=== PATIENT | male | born 1995 | race Caucasian/White ===

== ENCOUNTER 2023-09-04 01:22 | Emergency (ER) | payer SELFPAY ==
[2023-09-04 01:36] VITALS: TEMP 98.1
[2023-09-04 01:55] LABS: Absolute Neutrophil Ct (ANC) 3.47 x10^3/uL (1.4-6.9); BASOPHIL % 0.5 % (0.0-0.4); Basophil (Absolute #) 0.04 x10^3/uL (0-0.4); Eosinophil % 2.9 % (0.00-5.0); Eosinophil (Absolute #) 0.23 x10^3/uL (0-0.5); Hematocrit 45.5 % (42-50); Hemoglobin 15.4 g/dL (12.5-18.0); IMMATURE GRAN # 0.02 x10^3u/L (0.00-0.03); IMMATURE GRAN % 0.3 % (0.00-0.4); Lymphocyte (Absolute #) 3.48 x10^3/uL (1.0-4.6); Lymphocytes % 44.1 % (24.0-44.0); Mean Cell Volume 84.4 fL (78-100); Mean Corpuscular Hemoglobin 28.6 pg (26-32); Mean Corpuscular Hgb Concent. 33.8 g/dL (32-36); Mean Platelet Volume 8.9 fL (7.5-11.0); Monocyte (Absolute #) 0.65 x10^3/uL (0.0-1.3); Monocytes % 8.2 % (0.0-12.0); Platelet Count 274 x10^3/uL (150-450); Red Blood Count 5.39 x10^6/uL (4.1-5.6); Red Cell Distribution Width 11.9 % (11.5-14.0); White Blood Count 7.9 x10^3/uL (4.0-10.5)
[2023-09-04 02:02] LABS: Appearance Clear (Clear); Bacteria None Seen /HPF (None Seen); Bilirubin Negative (Negative); Blood Negative (Negative); Epithelial Cells None Seen /HPF (None Seen); Glucose, Urine Negative (Negative); Hyaline Casts NONE SEEN /LPF (0-2); Ketones Negative (Negative); Leukocyte Esterase Trace (Negative); Nitrite Negative (Negative); Ph 5.5 (4.6-8.0); Protein,Urine Dip Negative (Negative); RBC 0-2 /HPF (0-5); Specific Gravity 1.025 (1.005-1.030)
[2023-09-04 02:04] LABS: ADD URINE CULTURE? YES (NO)
[2023-09-04 02:10] LABS: ALBUMIN 4.2 g/dL (3.5-5.0); ALKALINE PHOSPHATASE 66 U/L (38-126); ANION GAP 13.2 MEQ/L (5-15); BLOOD UREA NITROGEN 19 mg/dL (9-20); CHLORIDE 104 mmol/L (98-107); Calcium 9.5 mg/dL (8.4-10.2); Carbon Dioxide 25 mmol/L (22-30); Creatinine 1 1.06 mg/dL (0.66-1.25); EST GLOMERULAR FILTRATION RATE 96.8 ML/MIN; ETHYL ALCOHOL < 10 mg/dL (0-10); Glucose 128 mg/dL (74-106); Potassium 4.1 mmol/L (3.5-5.1); SGOT/AST 37 U/L (17-59); SGPT/ALT 48 U/L (0-50); SODIUM 138 mmol/L (135-145)
[2023-09-04 02:13] LABS: Amphetamine,Urine NEGATIVE (NEGATIVE); Barbiturate,Urine NEGATIVE (NEGATIVE); Benzodiazepine,Urine NEGATIVE (NEGATIVE); Cocaine,Urine NEGATIVE (NEGATIVE); Methadone,Urine NEGATIVE (NEGATIVE); Opiate,Urine NEGATIVE (NEGATIVE); PCP,Urine NEGATIVE (NEGATIVE); THC,Urine NEGATIVE (NEGATIVE)
--- NOTE | 2023-09-04 02:52 | XRAY ---
CLINICAL HISTORY: left side weakness COMPARISON: None. TECHNIQUE: Axial noncontrast CT scan of the brain was performed from the skull base to the high parietal region. FINDINGS: The visualized brain parenchyma shows normal appearance. No focal parenchymal abnormalities are demonstrated. Strong-white matter differentiation is maintained. No midline shifts or deformity. No intracerebral or extra axial hematoma. Normal size and configuration of the cerebral ventricles. Normal CT appearance of the posterior fossa structures namely the cerebellar hemispheres, brainstem and cerebellar peduncles. The cerebello-pontine angles are clear. The osseous structures in the skull base are unremarkable. No definite calvarium fractures. Scanned paranasal sinuses are clear. IMPRESSION: No evidence of established infarction, intracranial or extracranial hemorrhage. Early changes of stroke may not be detected on a CT scan. If strong clinical suspicion of stroke then suggest MRI with diffusion-weighted imaging. [facility] ER was called at [phone] at 2:47 AM EST, 09/04/2023 and results were verbally communicated to Dr. Giron. Electronically Signed by: Keny Lawrence MD. (09/04/2023 02:48:09 EDT)
--- NOTE | 2023-09-04 02:58 | ERPHSYRPT ---
- History of Present Illness Time Seen by Provider: 09/04/23 02:40 Historian: patient Exam Limitations: no limitations Patient Subjective Stated Complaint: Chest pain Triage Nursing Assessment: Patient ambulatd back to ED and transferred self to bed. Patient A+O X 3. Patient's skin pink, warm and dry. Patient states around 1245 he had just sat down to play a video game when he started having left sided shoulder/chest pain. Patient states he got exhausted all of a sudden and wasn't thinking clear. Patient currently denies chest pain. Patient states his thought process is foggy. Patient has strong and equal compliance auditor Physician History: 28-year-old male presented in the ER with complains of sudden onset left-sided chest pain almost an hour prior to arrival, nonradiating, moderate intensity with no associated palpitations or shortness of breath. Although patient noticed his oxygen saturation was between 90 and 92% at home. Soon after around 12:45 AM patient started feeling as if he is confused and is unable to a rticulate well, not feeling himself. This lasted for almost half an hour and started to improve. Patient still reports he is feeling a little off. Denies any focal numbness tingling or weakness. No visual disturbance or difficulty speech at present. Patient does vape but no other substance use reported. Does have minimal nonproductive cough but no fever or chills. Denies any history of anxiety or depression. Aspirin Treatment Today: unknown Allergies/Adverse Reactions: cefaclor [From Ceclor] Allergy (Verified 09/04/23 01:26) Home Medications: No Reportable Medications [No Reported Medications] 09/04/23 [History] Hx Influenza Vaccination/Date Given: No Hx Pneumococcal Vaccination/Date Given: No Immunizations Up to Date: Yes Travel Risk - International Travel Have you traveled outside of the country in past 3 weeks: No - Emerging Infectious Disease Are you exhibiting symptoms associated with any current EIDs: No - Review of Systems Constitutional: No Symptoms Eyes: No Symptoms Ears, Nose, & Throat: No Symptoms Respiratory: Cough Cardiac: Chest Pain Abdominal/Gastrointestinal: No Symptoms Genitourinary Symptoms: No Symptoms Musculoskeletal: No Symptoms Skin: No Symptoms Psychological: No Symptoms Endocrine: No Symptoms Hematologic/Lymphatic: No Symptoms - Past Medical History Pertinent Past Medical History: No Neurological History: No Pertinent History ENT History: No Pertinent History Cardiac History: No Pertinent History Respiratory History: No Pertinent History Endocrine Medical History: No Pertinent History Musculoskeletal History: No Pertinent History GI Medical History: No Pertinent History History: No Pertinent History Psycho-Social History: No Pertinent History Male Reproductive Disorders: No Pertinent History - Past Surgical History Past Surgical History: Yes Neuro Surgical History: No Pertinent History Cardiac: No Pertinent History Respiratory: No Pertinent History Gastrointestinal: No Pertinent History Genitourinary: No Pertinent History Musculoskeletal: Orthopedic Surgery Male Surgical History: No Pertinent History Other Surgical History: Left leg - Social History Smoking Status: Never smoker Exposure to second hand smoke: No Drug Use: none - Nursing Vital Signs Nursing Vital Signs: Initial Vital Signs Temperature 98.1 F 09/04/23 01:27 Pulse Rate 106 H 09/04/23 01:27 Respiratory Rate 18 09/04/23 01:27 Blood Pressure 135/82 09/04/23 01:27 O2 Sat by Pulse Oximetry 97 09/04/23 01:27 Pain Scale Pain Intensity 0 - Physical Exam General Appearance: no apparent distress, alert, anxiety Eye Exam: PERRL/EOMI Ears, Nose, Throat Exam: normal ENT inspection Neck Exam: normal inspection, non-tender, supple, full range of motion Respiratory Exam: normal breath sounds, lungs clear Cardiovascular Exam: regular rate/rhythm, normal heart sounds Gastrointestinal/Abdomen Exam: soft, normal bowel sounds, No tenderness Back Exam: normal inspection Extremity Exam: normal inspection, normal range of motion Neurologic Exam: alert, oriented x 3, cooperative, certified paralegal II-XII nml as tested, nml cerebellar function, nml station & gait, sensation nml, No normal mood/affect (Anxious), No motor deficits, No slurred speech Skin Exam: normal color SpO2 Interpretation: normal SpO2: 98 O2 Delivery: Room Air - Course EKG Interpreted by Me: RATE (97), Sinus Rhythm, NORMAL AXIS, NORMAL INTERVALS Lab/Rad Data: Laboratory Result Diagrams 09/04/23 01:53 09/04/23 01:53 Laboratory Results 09/04/23 09/04/23 09/04/23 Range/Units 01:53 01:53 01:53 WBC 7.9 (4.0-10.5) x10^3/uL RBC 5.39 (4.1-5.6) x10^6/uL Hgb 15.4 (12.5-18.0) g/dL Hct 45.5 (42-50) % MCV 84.4 (78-100) fL MCH 28.6 (26-32) pg MCHC 33.8 (32-36) g/dL RDW 11.9 (11.5-14.0) % Plt Count 274 (150-450) x10^3/uL MPV 8.9 (7.5-11.0) fL Gran % 44.0 (36.0-66.0) % Immature Gran % (Auto) 0.3 (0.00-0.4) % Nucleat RBC Rel Count 0.0 (0.00-0.1) % Eos # (Auto) 0.23 (0-0.5) x10^3/uL Immature Gran # (Auto) 0.02 (0.00-0.03) x10^3u/L Absolute Lymphs (auto) 3.48 (1.0-4.6) x10^3/uL Absolute Monos (auto) 0.65 (0.0-1.3) x10^3/uL Absolute Nucleated RBC 0.00 (0.00-0.01) x10^3u/L Lymphocytes % 44.1 H (24.0-44.0) % Monocytes % 8.2 (0.0-12.0) % Eosinophils % 2.9 (0.00-5.0) % Basophils % 0.5 (0.0-0.4) % Absolute Granulocytes 3.47 (1.4-6.9) x10^3/uL Basophils # 0.04 (0-0.4) x10^3/uL Sodium 138 (135-145) mmol/L Potassium 4.1 (3.5-5.1) mmol/L Chloride 104 (98-107) mmol/L Carbon Dioxide 25 (22-30) mmol/L Anion Gap 13.2 (5-15) MEQ/L BUN 19 (9-20) mg/dL Creatinine 1.06 (0.66-1.25) mg/dL Estimated GFR 96.8 ML/MIN Glucose 128 H (74-106) mg/dL Calcium 9.5 (8.4-10.2) mg/dL Total Bilirubin 0.60 (0.2-1.3) mg/dL AST 37 (17-59) U/L ALT 48 (0-50) U/L Alkaline Phosphatase 66 (38-126) U/L Troponin I < 0.012 (0.000-0.033) ng/mL Serum Total Protein 7.0 (6.3-8.2) g/dL Albumin 4.2 (3.5-5.0) g/dL Urine Color (Yellow) Urine Appearance (Clear) Urine pH (4.6-8.0) Ur Specific Grass Range (1.005-1.030) Urine Protein (Negative) Urine Glucose (UA) (Negative) mg/dL Urine Ketones (Negative) Urine Blood (Negative) Urine Nitrite (Negative) Urine Bilirubin (Negative) Urine Urobilinogen (0.2) mg/dL Ur Leukocyte Esterase (Negative) U Hyaline Cast (Auto) (0-2) /LPF Urine Microscopic RBC (0-5) /HPF Urine Microscopic WBC (0-5) /HPF Ur Epithelial Cells (None Seen) /HPF Urine Bacteria (None Seen) /HPF Urine Culture Reflexed (NO) Urine Opiates Level (NEGATIVE) Ur Methadone (NEGATIVE) Urine Barbiturates (NEGATIVE) Ur Phencyclidine (PCP) (NEGATIVE) Urine Amphetamine (NEGATIVE) U Benzodiazepine Level (NEGATIVE) Urine Cocaine (NEGATIVE) Urine Marijuana (THC) (NEGATIVE) Ethyl Alcohol < 10 (0-10) mg/dL 09/04/23 09/04/23 Range/Units 01:41 01:41 WBC (4.0-10.5) x10^3/uL RBC (4.1-5.6) x10^6/uL Hgb (12.5-18.0) g/dL Hct (42-50) % MCV (78-100) fL MCH (26-32) pg MCHC (32-36) g/dL RDW (11.5-14.0) % Plt Count (150-450) x10^3/uL MPV (7.5-11.0) fL Gran % (36.0-66.0) % Immature Gran % (Auto) (0.00-0.4) % Nucleat RBC Rel Count (0.00-0.1) % Eos # (Auto) (0-0.5) x10^3/uL Immature Gran # (Auto) (0.00-0.03) x10^3u/L Absolute Lymphs (auto) (1.0-4.6) x10^3/uL Absolute Monos (auto) (0.0-1.3) x10^3/uL Absolute Nucleated RBC (0.00-0.01) x10^3u/L Lymphocytes % (24.0-44.0) % Monocytes % (0.0-12.0) % Eosinophils % (0.00-5.0) % Basophils % (0.0-0.4) % Absolute Granulocytes (1.4-6.9) x10^3/uL Basophils # (0-0.4) x10^3/uL Sodium (135-145) mmol/L Potassium (3.5-5.1) mmol/L Chloride (98-107) mmol/L Carbon Dioxide (22-30) mmol/L Anion Gap (5-15) MEQ/L BUN (9-20) mg/dL Creatinine (0.66-1.25) mg/dL Estimated GFR ML/MIN Glucose (74-106) mg/dL Calcium (8.4-10.2) mg/dL Total Bilirubin (0.2-1.3) mg/dL AST (17-59) U/L ALT (0-50) U/L Alkaline Phosphatase (38-126) U/L Troponin I (0.000-0.033) ng/mL Serum Total Protein (6.3-8.2) g/dL Albumin (3.5-5.0) g/dL Urine Color Yellow (Yellow) Urine Appearance Clear (Clear) Urine pH 5.5 (4.6-8.0) Ur Specific Grass Range 1.025 (1.005-1.030) Urine Protein Negative (Negative) Urine Glucose (UA) Negative (Negative) mg/dL Urine Ketones Negative (Negative) Urine Blood Negative (Negative) Urine Nitrite Negative (Negative) Urine Bilirubin Negative (Negative) Urine Urobilinogen 1.0 A (0.2) mg/dL Ur Leukocyte Esterase Trace A (Negative) U Hyaline Cast (Auto) NONE SEEN (0-2) /LPF Urine Microscopic RBC 0-2 (0-5) /HPF Urine Microscopic WBC 11-20 A (0-5) /HPF Ur Epithelial Cells None Seen (None Seen) /HPF Urine Bacteria None Seen (None Seen) /HPF Urine Culture Reflexed YES (NO) Urine Opiates Level NEGATIVE (NEGATIVE) Ur Methadone NEGATIVE (NEGATIVE) Urine Barbiturates NEGATIVE (NEGATIVE) Ur Phencyclidine (PCP) NEGATIVE (NEGATIVE) Urine Amphetamine NEGATIVE (NEGATIVE) U Benzodiazepine Level NEGATIVE (NEGATIVE) Urine Cocaine NEGATIVE (NEGATIVE) Urine Marijuana (THC) NEGATIVE (NEGATIVE) Ethyl Alcohol (0-10) mg/dL - Progress Progress: improved, re-examined Air Movement: good Progress Note: 09/04/23 03:32 28 years old is evaluated for chest pain with confusion not feeling himself. Patient had similar episodes in the past as well but did not seek any medical attention. Patient has nonfocal neuroexam. EKG is normal sinus rhythm with no acute ischemic changes. Patient ortho also having oxygen saturation in low 90s, currently around 95%. He is not in any distress. Lungs bilateral clear to auscultation. Chest x-ray negative for any acute cardiopulmonary findings revie wed by me, official report is pending. Patient has normal white count, unremarkable chemistries and negative troponins. Has negative urine drug screen. I have obtained CT head stroke protocol which is negative. Obtain [facility] neurology consult who has seen patient, patient has an NIH of 0 currently, neurology is concerned about patient could have a atypical migraine versus seizures versus TIA. Recommended further evaluation with MRI/MRA and EEG. No MRI services are available here at [facility] over the [facility], discussed with patient and he wants to go to [facility]. I have called [facility] transfer center. 09/04/23 04:[address] [facility] reviewed history, w orkup and neurology recommendations, declined transfer and recommended transfer to facility at a higher level of care. Patient does not want to go to [facility] or any other hospital which she is offered about [facility]. He wants to leave AGAINST MEDICAL ADVICE. Patient states "I am back to normal and this has happened in the past as well, do not want to go anywhere". Discussed with patient about risk of leaving AMA which would not only delay the diagnosis but worsening of morbidity/permanent disability leading to which she understand but still wants to leave AMA. He signed out AMA papers and walked out of the ER in stable condition. Girlfriend was also involved in decision making. Patient is not confused Blood Culture(s) Obtained: No Antibiotics given: No Discussed with : Other ([facility] teleneurology) Counseled pt/family regarding: lab results, diagnosis, rad results Medical Desision Making - Discussion of managment Care discussed with:: specialist ([facility] neurology) Reviewed:: Test results, Need for additional workup Agreed on:: Treatment plan - Risk of complications The pt has a high risk of morbidity or mortality based on: Decision regarding hospitilization or escalation of hosp level of care - Departure Departure Disposition: AMA Clinical Impression: Atypical chest pain, Intermittent confusion Condition: Stable Critical Care Time: No Referrals: DOCTOR,NO FAMILY [Primary Care Provider] - Follow up/PCP as directed
[2023-09-04 04:32] VITALS: BP 100/63; PULSE 76; RESP 14
[2023-09-04 06:59] VITALS: O2SAT 98
--- NOTE | 2023-09-04 07:41 | XRAY ---
Indication: Chest pain. Comparison: None Portable chest demonstrates normal heart and lungs. Bony thorax intact.
== END 2023-09-04 04:37 | disposition left against medical advice (07) ==
LOC: ED 01:22
DX: R07.89 Other chest pain (principal); R41.0 Disorientation, unspecified
CPT/HCPCS: 36000; 36415; 70450; 71045; 80053; 80307; 81001; 82077; 84484; 85025; 87086; 93005; 93041; 99284

== ENCOUNTER 2024-01-25 19:30 | Emergency (ER) | payer MEDICAID ==
[2024-01-25 20:28] VITALS: TEMP 98.1
[2024-01-25 20:29] LABS: Absolute Neutrophil Ct (ANC) 4.43 x10^3/uL (1.78-5.38); BASOPHIL % 0.3 % (0.2-1.2); Basophil (Absolute #) 0.02 x10^3/uL (0.01-0.08); Eosinophil % 0.3 % (0.8-7.0); Eosinophil (Absolute #) 0.02 x10^3/uL (0.04-0.54); Hematocrit 43.8 % (40.1-51.0); Hemoglobin 14.8 g/dL (13.7-17.5); IMMATURE GRAN # 0.01 x10^3u/L (0.001-0.031); IMMATURE GRAN % 0.2 % (0.001-0.429); Lymphocyte (Absolute #) 1.08 x10^3/uL (1.32-3.57); Lymphocytes % 17.8 % (21.8-53.1); Mean Cell Volume 83.4 fL (79.0-92.2); Mean Corpuscular Hemoglobin 28.2 pg (25.7-32.2); Mean Corpuscular Hgb Concent. 33.8 g/dL (32.3-36.5); Mean Platelet Volume 9.1 fL (9.4-12.4); Monocytes % 8.3 % (5.3-12.2); Neutrophil % 73.1 % (34.0-67.9); Platelet Count 212 x10^3/uL (163-337); Red Blood Count 5.25 x10^6/uL (4.63-6.08); Red Cell Distribution Width 12.2 % (11.6-14.4); White Blood Count 6.1 x10^3/uL (4.23-9.07)
[2024-01-25 20:44] LABS: ACETAMINOPHEN < 10 ug/ml (10-30); ALBUMIN 4.7 g/dL (3.5-5.0); ALKALINE PHOSPHATASE 76 U/L (38-126); ANION GAP 14.4 MEQ/L (5-15); BLOOD UREA NITROGEN 17 mg/dL (9-20); CHLORIDE 101 mmol/L (98-107); Calcium 9.4 mg/dL (8.4-10.2); Carbon Dioxide 25 mmol/L (22-30); Creatinine 1 0.95 mg/dL (0.66-1.25); EST GLOMERULAR FILTRATION RATE 110.4 ML/MIN; ETHYL ALCOHOL < 10 mg/dL (0-10); Glucose 97 mg/dL (74-106); Potassium 3.8 mmol/L (3.5-5.1); SALICYLATE < 1.0 mg/dL (2-20); SGOT/AST 39 U/L (17-59); SGPT/ALT 40 U/L (0-50); SODIUM 137 mmol/L (135-145); Total Protein 7.5 g/dL (6.3-8.2)
[2024-01-25] MEDS ORDERED: Sodium Chloride 0.9% 1000 ML 1,000 ML ONE (20:55)
[2024-01-25] MEDS: Sodium Chloride 0.9% 1000 ML 1,000 ML IV SCH (20:56)
[2024-01-25 21:29] LABS: Appearance Clear (Clear); Bacteria None Seen /HPF (None Seen); Bilirubin Moderate (Negative); Blood Negative (Negative); Epithelial Cells None Seen /HPF (None Seen); Glucose, Urine Negative (Negative); Ketones 80 (Negative); Leukocyte Esterase Trace (Negative); Nitrite Negative (Negative); Protein,Urine Dip 30 (Negative); Specific Gravity >=1.030 (1.005-1.030)
[2024-01-25 21:30] LABS: ADD URINE CULTURE? YES (NO)
[2024-01-25 21:44] LABS: Amphetamine,Urine NEGATIVE (NEGATIVE); Barbiturate,Urine NEGATIVE (NEGATIVE); Benzodiazepine,Urine NEGATIVE (NEGATIVE); Cocaine,Urine NEGATIVE (NEGATIVE); Methadone,Urine NEGATIVE (NEGATIVE); Opiate,Urine NEGATIVE (NEGATIVE); PCP,Urine NEGATIVE (NEGATIVE); THC,Urine NEGATIVE (NEGATIVE)
[2024-01-25] MEDS ORDERED: Levofloxacin 500MG/100ML D5W 500 MG/100 ML BAG IV ONE (22:01)
--- NOTE | 2024-01-25 22:02 | ERPHSYRPT ---
- History of Present Illness Time Seen by Provider: 01/25/24 19:40 Source: patient Exam Limitations: no limitations Patient Subjective Stated Complaint: per ems, pt was [place] with a rope around his neck and his hands belted behind his back. pt states he has gaps in his memory. he does have a memory of being in the area he was found but does not have a memory of putting the belt around his hands or the rope around his neck. pt states he has been having problems with his and he has not been staying at home and has been away from her and his 6 month old child. Triage Nursing Assessment: pt alert and oriented x4 at this time. per ems, when they arrived on scene pt was confused. pt does have gaps in his memory but is oriented to person, place, time, and situation. pupils equal and reactive. skin warm and dry, pt with dirt all over him and his clothes. pt calm and cooperative, tearful at times. Physician History: 28-year-old male presents to emergency department for evaluation status post suicide attempt. Patient arrived via EMS. Patient has poor recollection but states he had a disagreement with his . She proposed divorce. Patient states he attempted to hurt himself by hanging. However he does not recall details. Patient does recall EMS picking him up from the ground. Upon arrival patient close were soiled. Patient was answering questions appropriately. Impression of a rope of some sort was observed on his neck. No other injuries reported. No petechiae observed. No neck pain. Patient denies any significant past medical histories. He voices no other complaints or concerns at this time. Portions of this note were created with voice recognition technology. There may be grammatical, spelling, punctuation or sound alike errors Timing/Duration: today Severity of Symptoms-Max: moderate Severity of Symptoms-Current: moderate Context related to: spouse Suicidal thoughts: attempt Associated Symptoms: frustrated Previous symptoms: no prior history Allergies/Adverse Reactions: cefaclor [From Ceclor] Allergy (Unknown, Verified 01/25/24 20:34) Home Medications: No Reportable Medications [No Reported Medications] 09/04/23 [History] Hx Tetanus, Diphtheria Vaccination/Date Given: Yes (2017) Hx Influenza Vaccination/Date Given: No Hx Pneumococcal Vaccination/Date Given: No Immunizations Up to Date: Yes Travel Risk - International Travel Have you traveled outside of the country in past 3 weeks: No - Emerging Infectious Disease Are you exhibiting symptoms associated with any current EIDs: No - Past Medical History Pertinent Past Medical History: No Neurological History: No Pertinent History ENT History: No Pertinent History Cardiac History: No Pertinent History Respiratory History: No Pertinent History Endocrine Medical History: No Pertinent History Musculoskeletal History: No Pertinent History GI Medical History: No Pertinent History History: No Pertinent History Psycho-Social History: No Pertinent History Male Reproductive Disorders: No Pertinent History - Past Surgical History Past Surgical History: Yes Neuro Surgical History: No Pertinent History Cardiac: No Pertinent History Respiratory: No Pertinent History Gastrointestinal: No Pertinent History Genitourinary: No Pertinent History Musculoskeletal: Orthopedic Surgery Male Surgical History: No Pertinent History Other Surgical History: Left leg- fx from [facility] - Social History Smoking Status: Never smoker Exposure to second hand smoke: No Drug Use: none - Social Determinants of Health Will the patient participate in the screening: Yes Do you worry about a steady place to live?: Yes Do you have any problems with any of the following?: No known problems In the past 12 months,have you had to go without utilities?: No Transportation Issues: Yes Has anyone in your support network made you feel unsafe?: No Have you or anyone in your house had to go without enough: No - Review of Systems Constitutional: No Symptoms, No Fever, No Chills Eyes: No Symptoms Ears, Nose, & Throat: No Symptoms Respiratory: No Symptoms, No Cough, No Dyspnea Cardiac: No Symptoms, No Chest Pain, No Edema, No Syncope Abdominal/Gastrointestinal: No Symptoms, No Abdominal Pain, No Nausea, No Vomiting, No Diarrhea Genitourinary Symptoms: No Symptoms, No Dysuria Musculoskeletal: No Symptoms, No Back Pain, No Neck Pain Skin: No Symptoms, No Rash Neurological: No Symptoms, No Dizziness, No Focal Weakness, No Sensory Changes Psychological: No Symptoms Endocrine: No Symptoms Hematologic/Lymphatic: No Symptoms Immunological/Allergic: No Symptoms All Other Systems: Reviewed and Negative - Nursing Vital Signs Nursing Vital Signs: Initial Vital Signs Temperature 98.1 F 01/25/24 19:37 Pulse Rate 83 01/25/24 19:37 Respiratory Rate 18 01/25/24 19:37 Blood Pressure 137/82 01/25/24 19:37 Pain Scale Pain Intensity 0 - Physical Exam General Appearance: no apparent distress Eyes, Ears, Nose, Throat Exam: normal ENT inspection, moist mucous membranes Neck Exam: normal inspection, non-tender, supple Respiratory Exam: normal breath sounds, lungs clear, airway intact, No respiratory distress Cardiovascular Exam: regular rate/rhythm, normal peripheral pulses, No edema Gastrointestinal/Abdominal Exam: soft, No tenderness, No distention Extremities Exam: normal inspection, normal range of motion, No evidence of injury, No edema Current Suicidality: denies suicide plan Neurological Exam: alert, 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 No fractures or dislocations.) Ordered Tests: Active Orders 24 hr Category Date Time Status Metalizer Field Operation STAT Care 01/25/24 19:36 Completed IV Insertion STAT Care 01/25/24 19:35 Completed ACO SDOH Referral ONCE Cons 01/25/24 20:27 Completed CERVICAL SPINE WO CONTRAST [CT] Stat Exams 01/25/24 20:28 Completed HEAD WITHOUT CONTRAST [CT] Stat Exams 01/25/24 19:36 Completed ACETAMINOPHEN Stat Lab 01/25/24 20:25 Completed CBC W DIFF Stat Lab 01/25/24 20:25 Completed CMP Stat Lab 01/25/24 20:25 Completed CULTURE,URINE Stat Lab 01/25/24 21:12 Received ETHYL ALCOHOL Stat Lab 01/25/24 20:25 Completed SALICYLATE Stat Lab 01/25/24 20:25 Completed UA W/RFX UR CULTURE Stat Lab 01/25/24 21:12 Completed Urine Triage Profile Stat Lab 01/25/24 21:12 Completed Medication Summary Discontinued Medications Generic Name Dose Route Start Last Admin Trade Name Freq PRN Reason Stop Dose Admin Sodium Chloride 1,000 mls @ 100 mls/hr 01/25/24 19:45 01/25/24 20:56 Sodium Chloride 0.9% 1000 Ml IV 02/24/24 19:44 100 mls/hr .Q10H SASHA Administration Levofloxacin/Dextrose 500 mg in 100 mls @ 100 mls/hr 01/25/24 21:55 01/25/24 22:03 Levofloxacin 500mg/100ml D5w IV 01/25/24 22:54 100 ml/hr STAT STA 100 mls/hr Administration Levofloxacin/Dextrose Confirm 01/25/24 22:01 Levofloxacin 500mg/100ml D5w Administered 01/25/24 22:02 Dose 500 mg in 100 mls @ ud IV .STK-MED ONE Sodium Chloride Confirm 01/25/24 20:55 Sodium Chloride 0.9% 1000 Ml Administered 01/25/24 20:56 Dose 1,000 mls @ ud .ROUTE .STK-MED ONE Lab/Rad Data: Laboratory Result Diagrams 01/25/24 20:25 01/25/24 20:25 Laboratory Results 01/25/24 01/25/24 01/25/24 Range/Units 21:12 21:12 20:25 WBC (4.23-9.07) x10^3/uL RBC (4.63-6.08) x10^6/uL Hgb (13.7-17.5) g/dL Hct (40.1-51.0) % MCV (79.0-92.2) fL MCH (25.7-32.2) pg MCHC (32.3-36.5) g/dL RDW (11.6-14.4) % Plt Count (163-337) x10^3/uL MPV (9.4-12.4) fL Gran % (34.0-67.9) % Immature Gran % (Auto) (0.001-0.429) % Nucleat RBC Rel Count (0.00-0.2) % Eos # (Auto) (0.04-0.54) x10^3/uL Immature Gran # (Auto) (0.001-0.031) x10^3u/L Absolute Lymphs (auto) (1.32-3.57) x10^3/uL Absolute Monos (auto) (0.30-0.82) x10^3/uL Absolute Nucleated RBC (0.00-0.012) x10^3u/L Lymphocytes % (21.8-53.1) % Monocytes % (5.3-12.2) % Eosinophils % (0.8-7.0) % Basophils % (0.2-1.2) % Absolute Granulocytes (1.78-5.38) x10^3/uL Basophils # (0.01-0.08) x10^3/uL Sodium 137 (135-145) mmol/L Potassium 3.8 (3.5-5.1) mmol/L Chloride 101 (98-107) mmol/L Carbon Dioxide 25 (22-30) mmol/L Anion Gap 14.4 (5-15) MEQ/L BUN 17 (9-20) mg/dL Creatinine 0.95 (0.66-1.25) mg/dL Estimated GFR 110.4 ML/MIN Glucose 97 (74-106) mg/dL Calcium 9.4 (8.4-10.2) mg/dL Total Bilirubin 1.40 H (0.2-1.3) mg/dL AST 39 (17-59) U/L ALT 40 (0-50) U/L Alkaline Phosphatase 76 (38-126) U/L Serum Total Protein 7.5 (6.3-8.2) g/dL Albumin 4.7 (3.5-5.0) g/dL Urine Color Dark Yellow (Yellow) Urine Appearance Clear (Clear) Urine pH 6.0 (4.6-8.0) Ur Specific Ethan >=1.030 A (1.005-1.030) Urine Protein 30 (Negative) Urine Glucose (UA) Negative (Negative) mg/dL Urine Ketones 80 A (Negative) Urine Blood Negative (Negative) Urine Nitrite Negative (Negative) Urine Bilirubin Moderate A (Negative) Urine Urobilinogen 1.0 A (0.2) mg/dL Ur Leukocyte Esterase Trace A (Negative) U Hyaline Cast (Auto) 11-20 (0-2) /LPF Urine Microscopic RBC 3-5 (0-5) /HPF Urine Microscopic WBC 6-10 A (0-5) /HPF Ur Epithelial Cells None Seen (None Seen) /HPF Urine Bacteria None Seen (None Seen) /HPF Urine Culture Reflexed YES (NO) Salicylates < 1.0 L (2-20) mg/dL Urine Opiates Level NEGATIVE (NEGATIVE) Ur Methadone NEGATIVE (NEGATIVE) Acetaminophen < 10 L (10-30) ug/ml Urine Barbiturates NEGATIVE (NEGATIVE) Ur Phencyclidine (PCP) NEGATIVE (NEGATIVE) Urine Amphetamine NEGATIVE (NEGATIVE) U Benzodiazepine Level NEGATIVE (NEGATIVE) Urine Cocaine NEGATIVE (NEGATIVE) Urine Marijuana (THC) NEGATIVE (NEGATIVE) Ethyl Alcohol < 10 (0-10) mg/dL 01/25/24 Range/Units 20:25 WBC 6.1 (4.23-9.07) x10^3/uL RBC 5.25 (4.63-6.08) x10^6/uL Hgb 14.8 (13.7-17.5) g/dL Hct 43.8 (40.1-51.0) % MCV 83.4 (79.0-92.2) fL MCH 28.2 (25.7-32.2) pg MCHC 33.8 (32.3-36.5) g/dL RDW 12.2 (11.6-14.4) % Plt Count 212 (163-337) x10^3/uL MPV 9.1 L (9.4-12.4) fL Gran % 73.1 H (34.0-67.9) % Immature Gran % (Auto) 0.2 (0.001-0.429) % Nucleat RBC Rel Count 0.0 (0.00-0.2) % Eos # (Auto) 0.02 L (0.04-0.54) x10^3/uL Immature Gran # (Auto) 0.01 (0.001-0.031) x10^3u/L Absolute Lymphs (auto) 1.08 L (1.32-3.57) x10^3/uL Absolute Monos (auto) 0.50 (0.30-0.82) x10^3/uL Absolute Nucleated RBC 0.00 (0.00-0.012) x10^3u/L Lymphocytes % 17.8 L (21.8-53.1) % Monocytes % 8.3 (5.3-12.2) % Eosinophils % 0.3 L (0.8-7.0) % Basophils % 0.3 (0.2-1.2) % Absolute Granulocytes 4.43 (1.78-5.38) x10^3/uL Basophils # 0.02 (0.01-0.08) x10^3/uL Sodium (135-145) mmol/L Potassium (3.5-5.1) mmol/L Chloride (98-107) mmol/L Carbon Dioxide (22-30) mmol/L Anion Gap (5-15) MEQ/L BUN (9-20) mg/dL Creatinine (0.66-1.25) mg/dL Estimated GFR ML/MIN Glucose (74-106) mg/dL Calcium (8.4-10.2) mg/dL Total Bilirubin (0.2-1.3) mg/dL AST (17-59) U/L ALT (0-50) U/L Alkaline Phosphatase (38-126) U/L Serum Total Protein (6.3-8.2) g/dL Albumin (3.5-5.0) g/dL Urine Color (Yellow) Urine Appearance (Clear) Urine pH (4.6-8.0) Ur Specific Ethan (1.005-1.030) Urine Protein (Negative) Urine Glucose (UA) (Negative) mg/dL Urine Ketones (Negative) Urine Blood (Negative) Urine Nitrite (Negative) Urine Bilirubin (Negative) Urine Urobilinogen (0.2) mg/dL Ur Leukocyte Esterase (Negative) U Hyaline Cast (Auto) (0-2) /LPF Urine Microscopic RBC (0-5) /HPF Urine Microscopic WBC (0-5) /HPF Ur Epithelial Cells (None Seen) /HPF Urine Bacteria (None Seen) /HPF Urine Culture Reflexed (NO) Salicylates (2-20) mg/dL Urine Opiates Level (NEGATIVE) Ur Methadone (NEGATIVE) Acetaminophen (10-30) ug/ml Urine Barbiturates (NEGATIVE) Ur Phencyclidine (PCP) (NEGATIVE) Urine Amphetamine (NEGATIVE) U Benzodiazepine Level (NEGATIVE) Urine Cocaine (NEGATIVE) Urine Marijuana (THC) (NEGATIVE) Ethyl Alcohol (0-10) mg/dL - Progress Progress: improved Progress Note: 28-year-old male presents to our ED for evaluation and treatment of suicide attempt. CT head C-spine negative. Patient had poor recollection initially however over time patient began to recall details. Laboratory workup suggestive of dehydration. IV fluids administered. UA significant for UTI. Patient received a dose of Rocephin in our ED. Patient accepted by Dr. Meade. They are aware of patient's UTI and will continue management accordingly. Patient is requesting help. Patient identifies that he requires psychological help. Patient is willing to receive help and wants to make an effort to rekindle the relationship with his and family. Patient otherwise has no complaints. Patient accepted at [id number] by [facility] Portions of this note were created with voice recognition technology. There may be grammatical, spelling, punctuation or sound alike errors Complexity of problem addressed is moderate acute complicated. No critical care time. Complex of data reviewed and analyzed is extensive. Test ordered test reviewed results analyzed and correlated clinically with history and physical exam. Risk of complication and or risk of morbidity/mortality of patient management is high. Patient requires hospitalization/higher level of care for further evaluation and treatment. Vital stable. Time spent to admit patient approximately 15 minutes. Plan of care established for shared decision making. No social determinants of health present to impede follow-up. Portions of this note were created with voice recognition technology. There may be grammatical, spelling, punctuation or sound alike errors 01/26/24 06:48 01/26/24 06:52 Counseled pt/family regarding: lab results, diagnosis, rad results - Departure Departure Disposition: Transfer Clinical Impression: Suicide attempt, Dehydration, UTI (urinary tract infection) Condition: Stable Critical Care Time: No Referrals: DOCTOR,NO FAMILY [Primary Care Provider] - Follow up/PCP as directed
[2024-01-25] MEDS: Levofloxacin 500MG/100ML D5W 500 MG/100 ML BAG IV STA (22:03)
--- NOTE | 2024-01-25 22:34 | XRAY ---
Indication: Hanging attempt. Status post fall from tree. Multiple contiguous axial images obtained through the cervical spine. Sagittal and coronal reformatted images obtained. Comparison: None Axial images negative for acute fracture, suspicious for lesions, or spinal canal stenosis. Mild C3-C4 endplate spurring. Facets are symmetric. Sagittal and coronal reformatted images demonstrates lordotic reversal, positional versus paraspinal spasm. No acute compression fracture, subluxation, or jumped facet. Normal appearing craniocervical junction. Visualized noncontrasted soft tissues including on the apices are unremarkable. Impression: Cervical lordotic reversal and C3-C4 degenerative endplate spurring. Remaining CT cervical spine is negative.
--- NOTE | 2024-01-25 22:34 | XRAY ---
Indication: Hanging attempt. Status post fall from tree. Multiple contiguous axial images obtained the head without contrast. Comparison: September 04, 2023 Normal appearing brain parenchyma, ventricles, and bony calvarium. Visualized paranasal sinuses and mastoid air cells are clear. Impression: Continued normal CT head without contrast exam.
[2024-01-26 05:09] VITALS: BP 114/72
[2024-01-26 05:21] VITALS: PULSE 108; RESP 21
[2024-01-26 06:53] VITALS: O2SAT 97
== END 2024-01-26 05:25 ==
LOC: ED 19:30
DX: T14.91XA Suicide attempt, initial encounter (principal); Z59.811 Housing instability, housed, with risk of homelessness; N39.0 Urinary tract infection, site not specified; E86.0 Dehydration
CPT/HCPCS: 36000; 36415; 70450; 72125; 80053; 80143; 80179; 80307; 81001; 82077; 85025; 87086; 93041; 96365; 99285; J1956